=== PATIENT | male | born 1995 | race Caucasian/White ===

== ENCOUNTER 2017-01-31 11:14 | Emergency (ER) | payer OTHER ==
[2017-01-31] MEDS ORDERED: RANITIDINE 50 MG/2 ML VIAL IVP ONE (11:20)
[2017-01-31 11:23] VITALS: TEMP 98.1
--- NOTE | 2017-01-31 11:24 | EDPHY ---
H & P Time Seen by Provider: 01/31/17 11:17 HPI/ROS: CHIEF COMPLAINT: Allergic reaction to hazelnuts HISTORY OF PRESENT ILLNESS: 21-year-old male with known peanut allergy arrives via ambulance after ingesting bread that unbeknownst to him had Huma nuts in it. Shortly thereafter he developed allergic reaction like symptoms. [place] [facility] [place] [facility] was able to get an EpiPen from a bystander , self administered EpiPen to the right thigh and consumed 50 mg of Benadryl. This was at approximately 10:45 a.m. today. He is transported by ambulance in and route was given further IV fluid, IV Solu-Medrol and albuterol. He also complained of nausea which is now resolved. He is feeling significantly improved after medical treatment. PRIMARY CARE PROVIDER: [place] of state REVIEW OF SYSTEMS: A ten point review of systems was performed and is negative with the exception of the items mentioned in the HPI PAST MEDICAL & SURGICAL HISTORY: Prior history of peanut allergy. No history of intubation or inpatient treatment for allergic reaction SOCIAL HISTORY: nonsmoker PHYSICAL EXAM (Prior to examination, patient consented to physical exam, hands were washed and my usual and customary physical exam procedures followed) 1) GENERAL: Well-developed, well-nourished, alert and oriented. Appears to be in no acute distress. 2) HEAD: Normocephalic, atraumatic 3) HEENT: Positive scleral injection. Nasopharynx, oropharynx, clear, no lesions. No trismus. Posterior oropharynx is erythematous with no tonsillar glossal enlargement. Ears bilaterally with normal tympanic membranes. 4) NECK: Full range of motion, no meningeal signs. 5) LUNGS: Clear auscultation bilaterally, no wheezes, no rhonchi, no retractions. 6) HEART: Regular rate and rhythm, no murmur, no heave, no gallop. 7) ABDOMEN: No guarding, no rebound, no focal tenderness, negative McBurney's, 8) MUSCULOSKELETAL: Moving all extremities, no focal areas of tenderness, no obvious trauma. No peripheral edema or discoloration. 9) BACK: no midline vertebral tenderness, no fluctuance, no step-off, no obvious trauma, no visual or palpable abnormality. 10) SKIN: diffuse erythema parent . 11) Psychiatric: Patient is oriented X 3, there is no agitation. DIFFERENTIAL DIAGNOSIS: in no particular include but limited to anaphylaxis, urticaria, anaphylactoid reaction (Messi Schneider) Constitutional: Initial Vital Signs Temperature (C) 36.7 C 01/31/17 11:20 Heart Rate 89 01/31/17 11:20 Respiratory Rate 18 01/31/17 11:20 Blood Pressure 101/72 01/31/17 11:20 O2 Sat (%) 99 01/31/17 11:20 O2 Delivery Mode Room Air O2 (L/minute) 2 Allergies/Adverse Reactions: tree nut [Nuts] Allergy (Verified 01/31/17 11:23) Home Medications: Medication Instructions Recorded EPINEPHRINE [EPIPEN] 0.3 mg IM ONCE #2 syr 01/31/17 Medical Decision Making ED Course/Re-evaluation: 11:20 a.m.: Seen on arrival by myself and Dr. Arita. 11:40 a.m.: Re-evaluation, erythema has resolved, breathing comfortably. Will continue to observe patient emergency department 1:05 p.m.: Patient has been re-evaluated with serial exams was recently at this time. He is asymptomatic, skin erythema resolved, lungs are clear, posterior or pharyngeal erythema is resolved. I think the patient can be discharged. Recommend caution with not ingestion. Be discharged with EpiPen prescription in usual and customary allergic reaction precautions and instructions. (Messi Schneider) Other Provider: See and evaluated by myself also. Physicial examination shows diffuse urticaria and mild wheezing. Patient was treated by EMS and in ED with epi, benadryl, solumderol and pepcid. Patient had markedly improved examination after observation in ED and is discharged to home with customary aftercare instructions. (Howard Arita) - Data Points Medications Given: Discontinued Medications Ranitidine HCl (Zantac) 50 mg IVP EDNOW ONE Stop: 01/31/17 11:21 Last Admin: 01/31/17 11:31 Dose: 50 mg Departure - Departure Disposition: Home, Routine, Self-Care Clinical Impression: Allergic reaction Qualifiers: Encounter type: initial encounter Qualified Code(s): T78.40XA - Allergy, unspecified, initial encounter Condition: Good Instructions: Food Allergy (ED), General Allergic Reaction (ED), Peanut Allergy (ED) Additional Instructions: Avoid nut containing products. If you developed allergic reaction use the EpiPen immediately and call 911 Referrals: Jil Weaver DO [Doctor of Osteopathy] - 2-3 days, call for appt. Prescriptions: EPINEPHRINE [EPIPEN] 0.3 mg IM ONCE #2 syr
[2017-01-31 12:08] VITALS: RESP 16
[2017-01-31 13:15] VITALS: BP 139/57; PULSE 85; O2SAT 94
== END 2017-01-31 13:14 | disposition home or self-care (01) ==
DX: T78.1XXA Other adverse food reactions, not elsewhere classified, initial encounter (principal); R11.0 Nausea; Z91.010 Allergy to peanuts
CPT/HCPCS: 96374; J2780